=== PATIENT | female | born 1960 | race Caucasian/White ===

== ENCOUNTER 2020-04-29 17:02 | Emergency (ER) | payer MEDICAID, SELFPAY ==
[2020-04-29 17:50] VITALS: BP 167/80; PULSE 98; RESP 14; TEMP 36.4; O2SAT 98; BMI 38.4
--- NOTE | 2020-04-29 18:10 | HMH.EDUTC ---
[facility] [place] Impression: Viral syndrome, Exposure to COVID-19 virus Disposition: Home, Self-Care Condition on Discharge: Good Instructions: Preventing the Spread of Coronavirus Discharge Instructions Additional Instructions: Drink plenty of fluids. Take tylenol for pain or fever. Return if you begin to have difficulty breathing. Follow up with your regular doctor. GO TO THE ER FOR ANY WORSENING SYMPTOMS Prescriptions: Ondansetron [Zofran 4mg ODT] 4 mg PO Q8HP PRN #20 tab.rapdis PRN Reason: Nausea Transmission Status: Received by [id number] Benzonatate [Tessalon Perle 100mg Cap] 100 mg PO TIDP PRN #30 cap PRN Reason: Cough Transmission Status: Received by [id number] Azithromycin [Z-Juan R 250mg Tab*] 250 mg PO UD DOSE PK #6 tab Transmission Status: Received by [id number] Referrals: Eddie Elias MD [Primary Care Provider] - Time of Disposition: 18:13 Medical Decision Making - Medical Records Medical records reviewed: No: I reviewed the patient's medical records. - Hammad Inquiry Pt receiving controlled substance: No Vital Signs: 04/29/20 17:50 04/29/20 18:18 Temperature 97.6 F 97.6 F Temperature Source Oral Pulse Rate 98 H Pulse Rate [Right Brachial] 98 H Respiratory Rate 14 14 Blood Pressure 167/80 H Blood Pressure [Right Arm] 167/80 H Blood Pressure Mean [Right Arm] 109 Blood Pressure Source [Right Arm] Automatic Cuff Blood Pressure Position [Right Arm] Sitting 02 Sat by Pulse Oximetry 98 Oxygen Delivery Method Room Air Orders (Tests/Meds): ORDERS Category Date Time Status Covid-19 Nasal PCR Sendout Sh[facility] Routine Lab 04/29/20 17:55 Received [facility] [place] - General Stated complaint: Sore throat, headache, exposure to COVID Time Seen by Provider: 04/29/20 18:10 Mode of Arrival: Ambulatory Source of Information: Patient Limitations: No Limitations Description of Symptoms (Recalled from Triage Doc. by RN): PATIENT REQUESTING COVID TEST D/T EXPOSURE; DENIES SYMPTOMS HEENT Symptoms (Recalled from RN notes): No Resp Symptoms (Recalled from RN notes): No Skin Symptoms (Recalled from RN notes): No MS Symptoms (Recalled from RN notes): No Functional Status (Recalled from RN notes): WNL - History of Present Illness Provider Complaint: She has been exposed to covid-19. She is having a cough, chilling and body aches. - Related Data Previous Rx's Medication Instructions Recorded Azithromycin [Z-Juan R 250mg Tab*] 250 mg PO UD DOSE PK #6 tab 04/29/20 Benzonatate [Tessalon Perle 100mg 100 mg PO TIDP PRN #30 cap 04/29/20 Cap] Ondansetron [Zofran 4mg ODT] 4 mg PO Q8HP PRN #20 tab.rapdis 04/29/20 Allergies Allergy/AdvReac Type Severity Reaction Status Date / Time No Known Allergies Allergy Verified 04/29/20 18:09 - Worker's Comp Is this a Worker's Comp case?: No [facility] History - Hepatitis A Screen Drug use history?: No High risk sexual behaviors?: No History of sexually transmitted infection?: No Currently employed?: No Childcare worker?: No Do you have indoor plumbing?: Yes Do you have electricity?: Yes Attestation statement:: This patient has been screened for Hepatitis A risk factors. I have reviewed the patient's past medical history: Yes Laterality Cases: Bilateral: Tonsillectomy - Social History Alcohol Intake: never Occupational Status: other ROS Obtained: Yes All systems reviewed & no additional complaints - Constitutional Constitutional: Reports system reviewed and no additional complaints, except as docu - Eyes Eyes: Reports system reviewed and no additional complaints, except as docu - ENT Ears, Nose, Mouth, and Throat: Reports system reviewed and no additional complaints, except as docu - Cardiovascular Cardiovascular: Reports system reviewed and no additional complaints, except as docu - Respiratory Respiratory: Yes system reviewed and no additional complaints, except a
[2020-04-29 18:18] VITALS: BP 167/80; PULSE 98; RESP 14; TEMP 36.4; O2SAT 98
[2020-05-01 14:14] LABS: Covid-19 Nasal PCR Sendout Lex Not Detected
== END 2020-04-29 18:24 | disposition home or self-care (01) ==
PROVIDERS: Emergency Provider Nurse Practitioner Family; PCP Family Medicine
DX: Z20.828 Contact with and (suspected) exposure to other viral communicable diseases (principal); B34.9 Viral infection, unspecified
CPT/HCPCS: 99201; U0004

== ENCOUNTER 2021-06-08 12:07 | Emergency (ER) | payer MEDICAID, SELFPAY ==
[2021-06-08 12:34] VITALS: BP 149/75; PULSE 79; RESP 16; TEMP 36.8; O2SAT 100; BMI 39.8
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
[2021-06-08 15:25] VITALS: BP 168/75; PULSE 79; RESP 18; TEMP 37.4; O2SAT 98; BMI 39.6
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
[2021-06-08 16:06] VITALS: BP 168/75; PULSE 79; RESP 18; TEMP 37.4
== END 2021-06-08 16:15 | disposition home or self-care (01) ==
PROVIDERS: Emergency Provider Nurse Practitioner Family; PCP Family Medicine
DX: S63.91XA Sprain of unspecified part of right wrist and hand, initial encounter (principal); V43.92XA Unspecified car occupant injured in collision with other type car in traffic accident, initial encounter; M54.9 Dorsalgia, unspecified; M54.2 Cervicalgia; Z89.021 Acquired absence of right finger(s)
CPT/HCPCS: 73110; 73130; 99202; G0463

== ENCOUNTER 2021-12-28 13:42 | Emergency (ER) | payer MEDICAID, SELFPAY ==
[2021-12-28 14:00] VITALS: BP 130/74; PULSE 89; RESP 19; TEMP 36.8; O2SAT 98; BMI 36.6
--- NOTE | 2021-12-28 14:08 | HMH.EDUTC ---
[facility] – [place] Disposition Clinical Impression: Sinusitis Qualifiers: Sinusitis location: unspecified location Chronicity: unspecified Qualified Code(s): J32.9 - Chronic sinusitis, unspecified Disposition: Home, Self-Care Condition on Discharge: Good Instructions: Sinusitis, DI for Sinusitis Additional Instructions: ? Start antibiotic today. Be sure to complete entire prescription even if feeling better ? Monitor temp. Tylenol every 4 hours as needed and / or ibuprofen every 6 hours as needed ( As long as your primary care physician has told you that it ok to take both. For fever/aches/pains ER if no less than 101 despite Tylenol or Motrin ? Humidifier/vaporizer or hot steamy shower ? Mucinex as prescribed for your cough and cough Be sure to drink lots of water. *Warm salt water gargles may help to soothe the throat *Throat Lozenges *Warm fluids like tea with honey may help to soothe the throat *Sleep elevated *Humidifier/Vaporizer Follow up IMMEDIATELY for new or worsening of symptoms OR no noticeable improvement over the next 48-72 hours. 911 immediately for any life threatening symptoms such as chest pain or difficulty breathing Prescriptions: Amoxicillin/Potassium Clav [Amox-Clav 875-125 mg Tablet] 1 tab PO BID #20 tab Transmission Status: Received by [facility] #[id number] Referrals: Eddie Elias MD [Primary Care Provider] - As needed Time of Disposition: 14:20 Medical Decision Making - Hammad Inquiry Pt receiving controlled substance: No Hammad was queried for this patient: No Vital Signs: 12/28/21 14:00 12/28/21 14:22 Temperature 98.2 F 98.2 F Temperature Source Oral Pulse Rate 89 Pulse Rate [Right Brachial] 89 Respiratory Rate 19 19 Blood Pressure 130/74 Blood Pressure [Right Arm] 130/74 Blood Pressure Mean [Right Arm] 92 Blood Pressure Source [Right Arm] Automatic Cuff Blood Pressure Position [Right Arm] Sitting 02 Sat by Pulse Oximetry 98 Oxygen Delivery Method Room Air Orders (Tests/Meds): ED MEDICATIONS Discontinued Medications Generic Name Dose Route Start Last Admin Trade Name Freq PRN Reason Stop Dose Admin Methylprednisolone Sodium Succinate 125 mg 12/28/21 14:14 12/28/21 14:22 Methylprednisolone Sod Succ 125mg Vial IM 12/28/21 14:15 125 mg ONCE ONE Administration Medical Decision Narrative: Patient states that she has had Solu Medrol in the past without complications or reactions [facility] [place] HPI - General Stated complaint: congestion, soa headache Time Seen by Provider: 12/28/21 14:09 Mode of Arrival: Ambulatory Source of Information: Patient Limitations: No Limitations Description of Symptoms (Recalled from Triage Doc. by RN): PATIENT C/O PRODUCTIVE COUGH WITH YELLOW/GREEN MUCOUS, RUNNY NOSE AND EAR PAIN SINCE SUNDAY HEENT Symptoms (Recalled from RN notes): Yes Resp Symptoms (Recalled from RN notes): Yes Skin Symptoms (Recalled from RN notes): No MS Symptoms (Recalled from RN notes): No Functional Status (Recalled from RN notes): WNL - History of Present Illness Provider Complaint: Patient states that she has been having sinus pain and pressure along with drainge in the back of her throat that she is able to cough up at times States that she has been having pressure behind her eyes States that today she was still not feeling well and feeling like she had a bad sinus infection - Related Data Previous Rx's Medication Instructions Recorded Amoxicillin/Potassium Clav 1 tab PO BID #20 tab 12/28/21 [Amox-Clav 875-125 mg Tablet] Allergies Allergy/AdvReac Type Severity Reaction Status Date / Time No Known Allergies Allergy Verified 04/29/20 18:09 - Worker's Comp Is this a Worker's Comp case?: No [facility] History - Hepatitis A Screen Attestation statement:: This patient has been screened for Hepatitis A risk factors. I have reviewed the patient's past medical history: Yes Medical History: Reports:: Diabetes Mellitus Type 2
[2021-12-28 14:22] VITALS: BP 130/74; PULSE 89; RESP 19; TEMP 36.8; O2SAT 98
== END 2021-12-28 14:40 | disposition home or self-care (01) ==
PROVIDERS: Emergency Provider Nurse Practitioner; PCP Family Medicine
DX: J32.9 Chronic sinusitis, unspecified (principal)
CPT/HCPCS: 96372; 99212; G0463

== ENCOUNTER 2022-05-08 12:45 | Emergency (ER) | payer MEDICAID, SELFPAY ==
[2022-05-08 13:20] VITALS: BP 145/76; PULSE 89; RESP 19; TEMP 36.9; O2SAT 98; BMI 36.1
[2022-05-08 14:04] VITALS: BP 145/76; PULSE 89; RESP 19; TEMP 36.9; O2SAT 98
--- NOTE | 2022-05-08 14:11 | EXP.UTC ---
Discharge Plan Disposition Patient Disposition: Home, Self-Care Condition: Good Prescriptions Prescriptions: New amoxicillin-pot clavulanate 875-125 mg Tablet 1 tab PO Q12H Qty: 20 0RF No Action amoxicillin-pot clavulanate 1 EACH tablet 1 tab PO BID Qty: 20 0RF Referrals Follow up/Referrals: Eddie Elias MD [Primary Care Provider] - See instructions Activity Restrictions/Add. Instructions Additional Instructions/Restrictions: *Monitor Temp, Over the counter Motrin or Tylenol as directed/as needed Tylenol every 4 hours and Motrin every 6 hours (as long as your family doctor has told you that you can take it) for fever or pain. and straight to ER if unable to lower temp less than 101.0 after medication given *Warm salt water gargles may help to soothe the throat *Throat Lozenges? *Warm fluids like tea with honey may help to soothe the throat? *Sleep elevated *Humidifier/Vaporizer Take medication as prescribed Make sure to Follow up with your Family Doctor if no improvement or any worsening of symptoms Follow up IMMEDIATELY for new or worsening symptoms or no Noticeable improvement over the next 48-72 hours. 911 for difficulty breathing or swallowing Clinical Impressions Clinical Impression: Sinusitis Qualifiers: Sinusitis location: unspecified location Chronicity: unspecified Qualified Code(s): J32.9 - Chronic sinusitis, unspecified Instructions Patient Instructions: Sinusitis, DI for Sinusitis Discharge ED Provider: Dora Colon [facility] General Stated complaint: Congestion,Headache,Left earache Mode of Arrival: Ambulatory Source of Information: Patient Limitations: No Limitations Time Seen by Provider: 05/08/22 14:11 Description of Symptoms (Recalled from Triage Doc. by RN): PATIENT C/O SINUS CONGESTION/DRAINAGE AND LEFT EAR PAIN HEENT Symptoms (Recalled from RN notes): Yes Resp Symptoms (Recalled from RN notes): No Skin Symptoms (Recalled from RN notes): No MS Symptoms (Recalled from RN notes): No Functional Status (Recalled from RN notes): WNL History of Present Illness Provider Complaint: Patient states that she was seen and treated about a month ago for sinus infection and doesnt feel like it ever cleared up States that for the last couple of weeks it has got worse States that she is feeling pressure behind her eyes, teeth and in her left ear so she came in to get it checked out Related Data Previous Rx's Medication Instructions Recorded amoxicillin 875 mg-potassium 1 tab PO BID #20 tabs 12/28/21 clavulanate 125 mg tablet amoxicillin 875 mg-potassium 1 tab PO Q12H #20 tabs 05/08/22 clavulanate 125 mg tablet Allergies Allergy/AdvReac Type Severity Reaction Status Date / Time No Known Allergies Allergy Verified 04/29/20 18:09 Worker's Comp Is this a Worker's Comp case?: No [facility] Disclaimer: The information contained in this section may have been updated after the patient was seen, as this information can be updated by other users. Medical History (Updated 05/08/22 @ 14:26 by Dora Colon APRN) Diabetes mellitus, type 2 History of gastroesophageal reflux (GERD) Surgical History (Updated 05/08/22 @ 13:30 by Tessa Kraft RN) History of cardiac catheterization History of cholecystectomy History of tonsillectomy Social History (Updated 05/08/22 @ 13:30 by Tessa Kraft RN) Smoking Status: Unknown if ever smoked alcohol intake: never current occupational status: other Travel in the last 8 weeks: None ROS Obtained: Yes All systems reviewed & no additional complaints except as documented and Yes Systems reviewed as appropriate & no additional complaints except as documented Physical Exam General General appearance: alert and in no apparent distress Expanded ENT Exam TM/Canal exam: Left TM: bulging Nose exam: Present sinus tenderness Respiratory Respiratory exam: Present normal lung sounds bilateral
== END 2022-05-08 14:32 | disposition home or self-care (01) ==
PROVIDERS: Emergency Provider Nurse Practitioner; PCP Family Medicine
DX: J32.9 Chronic sinusitis, unspecified (principal)
CPT/HCPCS: 99212; G0463

== ENCOUNTER 2023-05-23 09:26 | Emergency (ER) | payer MEDICAID, SELFPAY ==
[2023-05-23 09:45] VITALS: BP 136/72; PULSE 81; RESP 18; TEMP 37; O2SAT 95; BMI 38.4
--- NOTE | 2023-05-23 10:06 | ED_ITS ---
Discharge Plan Disposition Patient Disposition: Home, Self-Care Condition: Good Prescriptions Prescriptions: New amoxicillin-pot clavulanate [Augmentin] 500-125 mg tablet 1 tab PO Q12H Qty: 20 0RF [id number] 3.5-10,000-1 mg/mL-unit/mL-% solution 4 drp otic (ear) TID 5 Days Qty: 10 0RF No Action atorvastatin 40 mg tablet 40 mg PO DAILY Patient Comments: TAKE 1 TABLET BY MOUTH EVERYDAY AT BEDTIME metformin 500 mg tablet 500 mg PO BID Patient Comments: TAKE 1 TABLET BY MOUTH TWICE A DAY cetirizine 10 mg tablet 10 mg PO DAILY Patient Comments: TAKE 1 TABLET BY MOUTH EVERY DAY tizanidine 4 mg tablet See Rx Instructions .ROUTE .COMPLEX Patient Comments: TAKE 2 TABLETS BY MOUTH IN THE MORNING AND 2 TABLETS IN THE EVENING Rx Instructions: TAKE 2 TABLETS BY MOUTH IN THE MORNING AND 2 TABLETS IN THE EVENING meloxicam 15 mg tablet 15 mg PO DAILY Patient Comments: TAKE 1 TABLET BY MOUTH EVERY DAY famotidine 40 mg tablet 40 mg PO DAILY Patient Comments: TAKE 1 TABLET BY MOUTH EVERYDAY AT BEDTIME hydroxyzine pamoate 50 mg capsule 50 mg PO DAILY Patient Comments: TAKE 1 CAPSULE BY MOUTH THREE TIMES A DAY NEEDED potassium chloride 10 mEq tablet extended release 10 meq PO DAILY Patient Comments: TAKE 1 TABLET BY MOUTH EVERY DAY hydrocodone-acetaminophen 10-325 mg tablet See Rx Instructions .ROUTE .COMPLEX Patient Comments: TAKE ONE TABLET BY MOUTH EVERY EIGHT HOURS Rx Instructions: TAKE ONE TABLET BY MOUTH EVERY EIGHT HOURS aspirin 81 mg tablet,delayed release (DR/EC) 81 mg PO DAILY Patient Comments: TAKE 1 TABLET BY MOUTH EVERY DAY trazodone 100 mg tablet 100 mg PO DAILY Patient Comments: TAKE 1 TABLET BY MOUTH EVERYDAY AT BEDTIME pantoprazole 40 mg tablet,delayed release (DR/EC) 40 mg PO DAILY Patient Comments: TAKE 1 TABLET BY MOUTH EVERY DAY buspirone 10 mg tablet 10 mg PO BID Patient Comments: TAKE 1 TABLET BY MOUTH TWICE A DAY hydrochlorothiazide 25 mg tablet 25 mg PO DAILY Patient Comments: TAKE 1 TABLET BY MOUTH EVERY DAY metoprolol succinate 25 mg tablet extended release 24 hr 25 mg PO DAILY Patient Comments: TAKE 1 TABLET BY MOUTH EVERY DAY AT BEDTIME ergocalciferol (vitamin D2) 1,250 mcg (50,000 unit) capsule See Rx Instructions .ROUTE .COMPLEX Patient Comments: TAKE 1 CAPSULE BY MOUTH WEEKLY IN THE MORNING Rx Instructions: TAKE 1 CAPSULE BY MOUTH WEEKLY IN THE MORNING pregabalin 150 mg capsule 150 mg PO DAILY Patient Comments: TAKE 1 CAPSULE BY MOUTH EVERY 12 HOURS Ozempic 1 mg/dose (4 mg/3 mL) pen injector See Rx Instructions .ROUTE .COMPLEX Patient Comments: INJECT 1 MG UNDER THE SKIN EVERY WEEK IN THE EVENING Rx Instructions: INJECT 1 MG UNDER THE SKIN EVERY WEEK IN THE EVENING Referrals Follow up/Referrals: Eddie Elias MD [Primary Care Provider] - See instructions Activity Restrictions/Add. Instructions Additional Instructions/Restrictions: Start antibiotic patient to take as ordered for a full length of time even if you feel better. Sinus infections do not get better overnight. It may take 2-3 days to notice much improvement so be sure to use conservative measures as discussed for symptoms. Flonase 1 spray each nostril daily to help with nasal congestion, sinus and ear pressure/information Increase fluids Humidifier/vaporizer as needed Tylenol and ibuprofen as needed for fever or pain. If symptoms do not improve or get worse return or be seen in the ER Follow-up with primary care this week Clinical Impressions Clinical Impression: Sinusitis Qualifiers: Sinusitis location: maxillary Chronicity: acute Recurrence: non-recurrent Qualified Code(s): J01.00 - Acute maxillary sinusitis, unspecified Otitis media Qualifiers: Otitis media type: suppurative Chronicity: acute Laterality: bilateral Recurrence: non-recurrent Spontaneous tympanic membrane rupture: without spontaneous rupture Qualified Code(s): H66.003 - Acute suppurative otitis media without spontaneous rupture of ear drum, bilateral Instructions Patient Instructions: DI for Sinusitis, Middle Ear Infection Discharge ED Provider: Kristen ([facility])[place] [facility] – [place] HPI General Stated complaint: sore throat and congestion Mode of Arrival: Ambulatory Source of Information: Patient Limitations: No Limitations Time Seen by Provider: 05/23/23 10:06 Description of Symptoms (Recalled from Triage Doc. by RN): sinus pressure, bilateral ear pain, and sore throat HEENT Symptoms (Recalled from RN notes): Yes Resp Symptoms (Recalled from RN notes): No Skin Symptoms (Recalled from RN notes): No MS Symptoms (Recalled from RN notes): No Functional Status (Recalled from RN notes): n/a History of Present Illness Provider Complaint: 62 yr old female presents for sinus pressure, bilateral ear pain, and sore throat Related Data Home Medications Medication Instructions Recorded Confirmed aspirin 81 mg tablet,delayed 81 mg PO DAILY 05/23/23 05/23/23 release atorvastatin 40 mg tablet 40 mg PO DAILY 05/23/23 05/23/23 buspirone 10 mg tablet 10 mg PO BID 05/23/23 05/23/23 cetirizine 10 mg tablet 10 mg PO DAILY 05/23/23 05/23/23 ergocalciferol (vitamin D2) 1,250 See Rx Instructions .Route .COMPLEX 05/23/23 05/23/23 mcg (50,000 unit) capsule famotidine 40 mg tablet 40 mg PO DAILY 05/23/23 05/23/23 hydrochlorothiazide 25 mg tablet 25 mg PO DAILY 05/23/23 05/23/23 hydrocodone 10 mg-acetaminophen See Rx Instructions .Route .COMPLEX 05/23/23 05/23/23 325 mg tablet hydroxyzine pamoate 50 mg capsule 50 mg PO DAILY 05/23/23 05/23/23 meloxicam 15 mg tablet 15 mg PO DAILY 05/23/23 05/23/23 metformin 500 mg tablet 500 mg PO BID 05/23/23 05/23/23 metoprolol succinate 25 mg 25 mg PO DAILY 05/23/23 05/23/23 tablet,extended release 24 hr pantoprazole 40 mg tablet,delayed 40 mg PO DAILY 05/23/23 05/23/23 release potassium chloride 10 mEq 10 meq PO DAILY 05/23/23 05/23/23 tablet,extended release pregabalin 150 mg capsule 150 mg PO DAILY 05/23/23 05/23/23 semaglutide 1 mg/dose (4 mg/3 mL) See Rx Instructions .Route .COMPLEX 05/23/23 05/23/23 subcutaneous pen injector (Ozempic) tizanidine 4 mg tablet See Rx Instructions .Route .COMPLEX 05/23/23 05/23/23 trazodone 100 mg tablet 100 mg PO DAILY 05/23/23 05/23/23 Previous Rx's Medication Instructions Recorded amoxicillin 500 mg-potassium 1 tab PO Q12H #20 tabs 05/23/23 clavulanate 125 mg tablet (Augmentin) [id number] 3.5 4 drp otic (ear) TID 5 days #10 mL 05/23/23 mg/mL-10,000 unit/mL-1 % ear solution Allergies Allergy/AdvReac Type Severity Reaction Status Date / Time No Known Allergies Allergy Verified 05/23/23 10:00 Worker's Comp Is this a Worker's Comp case?: No [facility] Disclaimer: The information contained in this section may have been updated after the patient was seen, as this information can be updated by other users. 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) Smoking Status: Unknown if ever smoked alcohol intake: never current occupational status: other Travel in the last 8 weeks: None ROS Obtained: Yes All systems reviewed & no additional complaints except as d ocumented Constitutional Constitutional: Reports system reviewed and no additional complaints, except as documented Eyes Eyes: Reports system reviewed and no additional complaints, except as documented ENT Ears, Nose, Mouth, and Throat: Reports system reviewed and no additional complaints, except as documented, Reports as per HPI, Reports otalgia, Reports facial pain, Reports sinus pain, Reports sinus pressure and Reports sore throat Cardiovascular Cardiovascular: Reports system reviewed and no additional complaints, except as documented Respiratory Respiratory: Reports system reviewed and no additional complaints, except as documented Integumentary/Breasts Skin/Breast: Reports system reviewed and no additional complaints, except as documented Neurologic Neurologic: Reports system reviewed and no additional complaints, except as documented Hematologic/Lymphatic Henatologic/Lymphatic: Reports system reviewed and no additional complaints, except as documented Allergic/Immunologic Allergic/Immunologic: Reports system reviewed and no additional complaints, except as documented Physical Exam General General appearance: alert and in no apparent distress Head Head exam: atraumatic Eye Eye exam: Present normal appearance and PERRL ENT ENT exam: Present mucous membranes moist and TM's normal bilaterally Expanded ENT Exam TM/Canal exam: Right TM: loss of landmarks and Bilateral TM: erythema and bulging Nose exam: Present sinus tenderness Respiratory Respiratory exam: Present normal lung sounds bilaterally Cardiovascular Cardiovascular exam: Present regular rate and normal rhythm Neurological Exam Neurological exam: Present alert and oriented X3 Medical Decision Making Medical Records Medical records reviewed: Yes I reviewed the patient's medical records. Hammad Inquiry Pt receiving controlled substance: No Hammad was queried for this patient: No Vital Signs: 05/23/23 09:45 Temperature 98.6 F Temperature Source Oral Pulse Rate [Right Radial] 81 Respiratory Rate 18 Blood Pressure [Right Arm] 136/72 Blood Pressure Mean [Right Arm] 93 Blood Pressure Source [Right Arm] Automatic Cuff Blood Pressure Position [Right Arm] Sitting 02 Sat by Pulse Oximetry 95 Oxygen Delivery Method Room Air
[2023-05-23] MEDS: DEXAMETHASONE 4MG/ML 1ML VIAL 4 MG IM (10:20)
[2023-05-23 10:25] LABS: UTC Strep Screen (Rapid) Negative (Negative)
[2023-05-23 10:31] VITALS: BP 136/72; PULSE 81; RESP 18; TEMP 37; O2SAT 95
== END 2023-05-23 10:31 | disposition home or self-care (01) ==
PROVIDERS: Emergency Provider Nurse Practitioner Family; PCP Family Medicine
DX: J01.00 Acute maxillary sinusitis, unspecified (principal); H66.003 Acute suppurative otitis media without spontaneous rupture of ear drum, bilateral; R07.0 Pain in throat; R09.81 Nasal congestion; E11.9 Type 2 diabetes mellitus without complications; K21.9 Gastro-esophageal reflux disease without esophagitis; Z79.84 Long term (current) use of oral hypoglycemic drugs; Z79.85 Long-term (current) use of injectable non-insulin antidiabetic drugs
CPT/HCPCS: 87880; 96372; 99212; 99214; G0463

== ENCOUNTER 2024-04-03 13:26 | Emergency (ER) | payer MEDICAID, SELFPAY ==
--- NOTE | 2024-04-03 13:55 | XR_ITS ---
PROCEDURE INFORMATION: Exam: XR Right Ankle Exam date and time: 04/03/2024 1:52 PM Age: 63 years old Clinical indication: Patient HX: Right ankle pain. Slid down steps 3 wks ago. TECHNIQUE: Imaging protocol: Radiologic exam of the right ankle. Views: 3 or more views. COMPARISON: No relevant prior studies available. FINDINGS: Bones/joints: See Soft tissues finding. Soft tissues: Soft tissue swelling worse laterally than medially suggestive of lateral soft tissue injury given there is no fracture, dislocation or subluxation. IMPRESSION: No acute findings.
[2024-04-03 13:57] VITALS: BP 164/80; PULSE 83; RESP 20; TEMP 36.8; O2SAT 96; BMI 38.4
--- NOTE | 2024-04-03 14:09 | ED_ITS ---
Discharge Plan Disposition Patient Disposition: Home, Self-Care Condition: Good Prescriptions Prescriptions: No Action atorvastatin 40 mg tablet 40 mg PO DAILY Patient Comments: TAKE 1 TABLET BY MOUTH EVERYDAY AT BEDTIME metformin 500 mg tablet 500 mg PO BID Patient Comments: TAKE 1 TABLET BY MOUTH TWICE A DAY cetirizine 10 mg tablet 10 mg PO DAILY Patient Comments: TAKE 1 TABLET BY MOUTH EVERY DAY tizanidine 4 mg tablet See Rx Instructions .ROUTE .COMPLEX Patient Comments: TAKE 2 TABLETS BY MOUTH IN THE MORNING AND 2 TABLETS IN THE EVENING Rx Instructions: TAKE 2 TABLETS BY MOUTH IN THE MORNING AND 2 TABLETS IN THE EVENING meloxicam 15 mg tablet 15 mg PO DAILY Patient Comments: TAKE 1 TABLET BY MOUTH EVERY DAY famotidine 40 mg tablet 40 mg PO DAILY Patient Comments: TAKE 1 TABLET BY MOUTH EVERYDAY AT BEDTIME hydroxyzine pamoate 50 mg capsule 50 mg PO DAILY Patient Comments: TAKE 1 CAPSULE BY MOUTH THREE TIMES A DAY NEEDED potassium chloride 10 mEq tablet extended release 10 meq PO DAILY Patient Comments: TAKE 1 TABLET BY MOUTH EVERY DAY aspirin 81 mg tablet,delayed release (DR/EC) 81 mg PO DAILY Patient Comments: TAKE 1 TABLET BY MOUTH EVERY DAY trazodone 100 mg tablet 100 mg PO DAILY Patient Comments: TAKE 1 TABLET BY MOUTH EVERYDAY AT BEDTIME pantoprazole 40 mg tablet,delayed release (DR/EC) 40 mg PO DAILY Patient Comments: TAKE 1 TABLET BY MOUTH EVERY DAY buspirone 10 mg tablet 10 mg PO BID Patient Comments: TAKE 1 TABLET BY MOUTH TWICE A DAY hydrochlorothiazide 25 mg tablet 25 mg PO DAILY Patient Comments: TAKE 1 TABLET BY MOUTH EVERY DAY metoprolol succinate 25 mg tablet extended release 24 hr 25 mg PO DAILY Patient Comments: TAKE 1 TABLET BY MOUTH EVERY DAY AT BEDTIME ergocalciferol (vitamin D2) 1,250 mcg (50,000 unit) capsule See Rx Instructions .ROUTE .COMPLEX Patient Comments: TAKE 1 CAPSULE BY MOUTH WEEKLY IN THE MORNING Rx Instructions: TAKE 1 CAPSULE BY MOUTH WEEKLY IN THE MORNING pregabalin 150 mg capsule 150 mg PO DAILY Patient Comments: TAKE 1 CAPSULE BY MOUTH EVERY 12 HOURS Ozempic 1 mg/dose (4 mg/3 mL) pen injector See Rx Instructions .ROUTE .COMPLEX Patient Comments: INJECT 1 MG UNDER THE SKIN EVERY WEEK IN THE EVENING Rx Instructions: INJECT 1 MG UNDER THE SKIN EVERY WEEK IN THE EVENING amoxicillin-pot clavulanate [Augmentin] 500-125 mg tablet 1 tab PO Q12H Qty: 20 0RF Mounjaro 2.5 mg/0.5 mL pen injector 2.5 mg SQ DIRECTED Patient Comments: Inject 2.5 mg every week by subcutaneous route for 30 days. Referrals Follow up/Referrals: Prabhakar Montalvo DO [Staff Physician] - See instructions Eddie Elias MD [Primary Care Provider] - See instructions Linh Reyes DPM [Staff Physician] - See instructions Activity Restrictions/Add. Instructions Additional Instructions/Restrictions: *weight bearing as tolerated *RICE, Rest the extremity, Ice 15-20 minutes 3-4 times daily, Compress- wear the caden wrap as discussed as much as possible to help reduce swelling and pain, Elevate the extremity when at rest *Caden wrap is for support and help control swelling, use it except in the shower. Be sure that is not to tight but not to loose either *Elevate when resting? *Ibuprofen 600-800mg every 6-8 hours as needed for pain an inflammation. If need something more can take Tylenol in between doses of Ibuprofen to help Immediately follow up with your family doctor for new or worsening of symptoms, or no noticeable improvement over the next 3-5 days Follow up with Podiatry or Orthopedics if no improvement Clinical Impressions Clinical Impression: Ankle sprain Qualifiers: Encounter type: initial encounter Involved ligament of ankle: unspecified ligament Laterality: right Qualified Code(s): S93.401A - Sprain of unspecified ligament of right ankle, initial encounter Instructions Patient Instructions: How To Perform RICE (Rest, Ice, Compress, Elevate), How to Use a Walking Boot Print Language Print Language: Portuguese Discharge ED Provider: Dora Colon [facility] General Stated complaint: AO inj right ankle Mode of Arrival: Ambulatory Source of Information: Patient Time Seen by Provider: 04/03/24 14:09 Description of Symptoms (Recalled from Triage Doc. by RN): RIGHT ANKLE PAIN, STARTED ON MAR 16 WHEN SHE FELL ON STEP HEENT Symptoms (Recalled from RN notes): No Resp Symptoms (Recalled from RN notes): No Skin Symptoms (Recalled from RN notes): No MS Symptoms (Recalled from RN notes): Yes Functional Status (Recalled from RN notes): WNL History of Present Illness Provider Complaint: Patient states that she was visiting family around the end of Feb when she slipped on the steps and hyperextended her right knee and twisted her right ankle States that she seen her PCP for her knee but thought her ankle would be ok but she is still having pain and swelling in the ankle worse when she walks on it Related Data Home Medications ?Medication ?Instructions ?Recorded ?Confirmed aspirin 81 mg tablet,delayed 81 mg PO DAILY 05/23/23 04/03/24 release atorvastatin 40 mg tablet 40 mg PO DAILY 05/23/23 04/03/24 buspirone 10 mg tablet 10 mg PO BID 05/23/23 05/23/23 cetirizine 10 mg tablet 10 mg PO DAILY 05/23/23 05/23/23 ergocalciferol (vitamin D2) 1,250 See Rx Instructions .Route .COMPLEX 05/23/23 04/03/24 mcg (50,000 unit) capsule famotidine 40 mg tablet 40 mg PO DAILY 05/23/23 04/03/24 hydrochlorothiazide 25 mg tablet 25 mg PO DAILY 05/23/23 04/03/24 hydroxyzine pamoate 50 mg capsule 50 mg PO DAILY 05/23/23 04/03/24 meloxicam 15 mg tablet 15 mg PO DAILY 05/23/23 04/03/24 metformin 500 mg tablet 500 mg PO BID 05/23/23 04/03/24 metoprolol succinate 25 mg 25 mg PO DAILY 05/23/23 04/03/24 tablet,extended release 24 hr pantoprazole 40 mg tablet,delayed 40 mg PO DAILY 05/23/23 04/03/24 release potassium chloride 10 mEq 10 meq PO DAILY 05/23/23 04/03/24 tablet,extended release pregabalin 150 mg capsule 150 mg PO DAILY 05/23/23 04/03/24 semaglutide 1 mg/dose (4 mg/3 mL) See Rx Instructions .Route .COMPLEX 05/23/23 05/23/23 subcutaneous pen injector (Ozempic) tizanidine 4 mg tablet See Rx Instructions .Route .COMPLEX 05/23/23 04/03/24 trazodone 100 mg tablet 100 mg PO DAILY 05/23/23 05/23/23 tirzepatide 2.5 mg/0.5 mL 2.5 mg SQ DIRECTED 04/03/24 04/03/24 subcutaneous pen injector (Margot) Previous Rx's ?Medication ?Instructions ?Recorded amoxicillin 500 mg-potassium 1 tab PO Q12H #20 tabs 05/23/23 clavulanate 125 mg tablet (Augmentin) Allergies Allergy/AdvReac Type Severity Reaction Status Date / Time No Known Allergies Allergy Verified 05/23/23 10:00 Worker's Comp Is this a Worker's Comp case?: No [facility] Disclaimer: The information contained in this section may have been updated after the patient was seen, as this information can be updated by other users. Medical History (Reviewed 05/23/23 @ 10:09 by Lavelle Peterson ([facility]), [place] [facility]) Diabetes mellitus, type 2 History of gastroesophageal reflux (GERD) Surgical History (Reviewed 05/23/23 @ 10:09 by Lavelle Peterson ([facility]), [place]) History of cardiac catheterization History of cholecystectomy History of tonsillectomy Social History (Reviewed 05/23/23 @ 10:09 by Lavelle Peterson ([facility]), [place]) Smoking Status: Unknown if ever smoked alcohol intake: never current occupational status: other Travel in the last 8 weeks: None ROS Obtained: Yes All systems reviewed & no additional complaints except as documented and Yes Systems reviewed as appropriate & no additional complaints except as documented Constitutional Constitutional: Reports system reviewed and no additional complaints, except as documented and Reports as per HPI ENT Ears, Nose, Mouth, and Throat: Reports system reviewed and no additional complai nts, except as documented and Reports as per HPI Cardiovascular Cardiovascular: Reports system reviewed and no additional complaints, except as documented and Reports as per HPI Respiratory Respiratory: Reports system reviewed and no additional complaints, except as documented and Reports as per HPI Gastrointestinal Gastrointestingal: Reports system reviewed and no additional complaints, except as documented and as per HPI Musculoskeletal Musculoskeletal: Reports system reviewed and no additional complaints, except as documented, Reports as per HPI and Reports other Comments: Pain and swelling in right ankle since twisting it the end of Feb Physical Exam General General appearance: alert and in no apparent distress ENT ENT exam: Present mucous membranes moist Chest Chest inspection: Present normal inspection and symmetric chest wall rise Respiratory Respiratory exam: Present normal lung sounds bilaterally; Absent respiratory distress or wheezes Cardiovascular Cardiovascular exam: Present regular rate, normal rhythm and normal heart sounds Expanded Lower Extremity Exam Right: Ankle exam: Present tenderness and swelling; Absent ecchymosis, deformity, crepitus, dislocation or erythema Foot/toe exam: Present normal inspection Neurovascular/Tendon exam: Present normal capillary refill Gait: observed and limited by pain Neurological Exam Neurological exam: Present alert, oriented X3 and normal gait Medical Decision Making Medical Records Screening: Per USPSTF and CDC recommendations, given the prevalence of disease in our region, it is our hospital?s policy to screen for HIV and viral Hepatitis for all patients aged 18 and over and those with ongoing risk factors. Hammad Inquiry Pt receiving controlled substance: No Hammad was queried for this patient: No Vital Signs: 04/03/24 13:57 Temperature 98.3 F Temperature Source Oral Pulse Rate [Left Radial] 83 Respiratory Rate 20 Blood Pressure [Left Arm] 164/80 H Blood Pressure Mean [Left Arm] 108 02 Sat by Pulse Oximetry 96 Orders (Tests/Meds): ORDERS Category Date Time Status Ankle XR -Right minimum 3 Views [XR ankle RT min 3V] Exams 04/03/24 13:55 Taken Stat Radiology Data #1: Image(s): Ankle Image Reviewed: Yes I have reviewed radiologist's interpretation FINDINGS: Bones/joints: See Soft tissues finding. Soft tissues: Soft tissue swelling worse laterally than medially suggestive of lateral soft tissue injury given there is no fracture, dislocation or subluxation. IMPRESSION: No acute findings. Procedures Orthopedic Splinting/Casting Injury #1: Side: right Lower Extremity Injury Location: ankle Lower Extremity Immobilizer: boot orthosis and applied by nurse/dr alfredo Post Cast/Splinting Neuro Status: intact and no change Post Cast/Splinting Vasc Status: intact and no change
[2024-04-03 14:31] VITALS: BP 164/80; PULSE 83; RESP 20; TEMP 36.8
== END 2024-04-03 14:43 | disposition home or self-care (01) ==
PROVIDERS: Emergency Provider Nurse Practitioner; PCP Family Medicine
DX: S93.401A Sprain of unspecified ligament of right ankle, initial encounter (principal); W10.9XXA Fall (on) (from) unspecified stairs and steps, initial encounter
CPT/HCPCS: 73610; 99213; G0381